=== PATIENT | female | born 1975 | race Caucasian/White ===

== ENCOUNTER 2018-06-17 08:06 | Emergency (ER) | payer BC ==
[~2018-06-17] VITALS: Ht 165.1 cm; Wt 67.9 kg
[2018-06-17 08:09] VITALS: Ht 165.1 cm; Wt 67.9 kg
[2018-06-17] MEDS ORDERED: SOD CHLORIDE 0.9% 1,000 ML IV STA (08:23)
[2018-06-17] MEDS ORDERED: KETOROLAC 30 MG INJ IV STA (08:23)
[2018-06-17] MEDS ORDERED: ONDANSETRON 4 MG INJ IV STA (08:23)
[2018-06-17] MEDS ORDERED: ACETAMINOPHEN 500 MG TAB ONE (09:11)
[2018-06-17] MEDS ORDERED: ACETAMINOPHEN 325 MG TAB PO ONE (09:30)
[2018-06-17] MEDS ORDERED: IBUP-1542 PO (10:34)
[2018-06-17] MEDS ORDERED: ONDA4TAB14 PO (10:34)
[2018-06-17 11:13] VITALS: BP 101/58; PULSE 92; RESP 17
--- NOTE | 2018-06-17 11:22 | ERD ---
ER Documentation Chief Complaint Chief Complaint abdominal pain, nausea and vomiting and dizziness this morning HPI Patient is a 43-year-old female with no medical problems who presents feeling "sick". She has dehydration and stomach pain. She has nausea and vomiting and generalized weakness. This started this morning while she was at work. She had subjective fever. She has had no treatment as of yet. She did not get a flu shot this year. Upon review of old medical records this is the patient's first visit to the emergency department. She does have a primary doctor Dr. Etienne. ROS All systems reviewed and are negative except as per history of present illness. Medications Home Meds Active Scripts Ondansetron (Ondansetron Odt) 4 Mg Tab.rapdis, 4 MG PO Q6H PRN for NAUSEA AND/OR VOMITING, #30 TAB Prov:DAVE ESCOBAR MD 06/17/18 Ibuprofen* (Motrin*) 600 Mg Tab, 600 MG PO Q6H PRN for PAIN AND OR ELEVATED TEMP, #30 TAB Prov:DAVE ESCOBAR MD 06/17/18 Allergies Allergies: Coded Allergies: cephalexin (Verified Allergy, Severe, RASH\\HIVES, 06/17/18) PER PT PMhx/Soc Medical and Surgical Hx: pt denies Medical Hx History of Surgery: Yes () Smoking Status: Never smoker FmHx Family History: diabetes Physical Exam Vitals Vital Signs Date Temp Pulse Resp B/P (MAP) Pulse Ox O2 O2 Flow FiO2 Time Delivery Rate 06/17/18 101.0 92 17 101/58 Room Air 11:13 (72) 06/17/18 102.1 09:13 06/17/18 102.1 100 17 107/61 100 Room Air 09:12 (76) 06/17/18 99.2 100 18 123/74 100 08:09 (90) Physical Exam Const: No acute distress Head: Atraumatic Eyes: Normal Conjunctiva ENT: Normal External Ears, Nose and Mouth. Neck: Full range of motion. No meningismus. Resp: Clear to auscultation bilaterally Cardio: Regular rate and rhythm, no murmurs Abd: Soft, non tender, non distended. Normal bowel sounds Skin: No petechiae or rashes Back: No midline or flank tenderness Ext: No cyanosis, or edema Neur: Awake and alert Psych: Normal Mood and Affect Result Diagram: 06/17/18 0837 06/17/18 0837 Results 24 hrs Laboratory Tests Test 06/17/18 08:37 White Blood Count 11.6 10^3/ul Red Blood Count 4.96 10^6/ul Hemoglobin 14.8 g/dl Hematocrit 44.1 % Mean Corpuscular Volume 88.9 fl Mean Corpuscular Hemoglobin 29.8 pg Mean Corpuscular Hemoglobin Concent 33.6 g/dl Red Cell Distribution Width 12.5 % Platelet Count 186 10^3/UL Mean Platelet Volume 10.5 fl Immature Granulocytes % 0.300 % Neutrophils % 89.3 % Lymphocytes % 4.2 % Monocytes % 5.5 % Eosinophils % 0.3 % Basophils % 0.4 % Nucleated Red Blood Cells % 0.0 /100WBC Immature Granulocytes # 0.030 10^3/ul Neutrophils # 10.4 10^3/ul Lymphocytes # 0.5 10^3/ul Monocytes # 0.6 10^3/ul Eosinophils # 0.0 10^3/ul Basophils # 0.1 10^3/ul Nucleated Red Blood Cells # 0.0 10^3/ul Urine Color YELLOW Urine Clarity CLEAR Urine pH 7.0 Urine Specific [place] 1.025 Urine Ketones TRACE mg/dL Urine Nitrite NEGATIVE mg/dL Urine Bilirubin NEGATIVE mg/dL Urine Urobilinogen NEGATIVE mg/dL Urine Leukocyte Esterase NEGATIVE [place] Urine Hemoglobin NEGATIVE mg/dL Urine Glucose NEGATIVE mg/dL Urine Total Protein NEGATIVE mg/dl Sodium Level 141 mmol/L Potassium Level 4.3 mmol/L Chloride Level 102 mmol/L Carbon Dioxide Level 29 mmol/L Anion Gap 10 Blood Urea Nitrogen 21 mg/dl Creatinine 0.77 mg/dl Est Glomerular Filtrat Rate mL/min > 60 mL/min Glucose Level 111 mg/dl Calcium Level 9.7 mg/dl Total Bilirubin 0.4 mg/dl Direct Bilirubin 0.00 mg/dl Indirect Bilirubin 0.4 mg/dl Aspartate Amino Transf (AST/SGOT) 21 IU/L Alanine Aminotransferase (ALT/SGPT) 20 IU/L Alkaline Phosphatase 39 IU/L Total Protein 8.1 g/dl Albumin 4.5 g/dl Globulin 3.60 g/dl Albumin/Globulin Ratio 1.25 Lipase 115 U/L Current Medications Medications Dose Sig/Kvng Start Time Status Last (Trade) Ordered Route PRN Stop Time Admin Dose Reason Admin Sodium 1,000 ml @ Q1H STAT 06/17/18 DC 06/17/18 Chloride 1,000 mls/hr IV 08:23 06/17/18 08:44 09:22 Ondansetron 4 mg ONCE STAT 06/17/18 DC 06/17/18 HCl (Zofran IV 08:23 06/17/18 08:44 Inj) 08:24 Ketorolac 30 mg ONCE STAT 06/17/18 DC 06/17/18 Tromethamine IV 08:23 06/17/18 09:22 (Toradol) 08:24 650 mg ONCE ONCE 06/17/18 DC 06/17/18 Acetaminophen PO 09:30 06/17/18 09:13 (Tylenol 09:31 Tab) 500 mg STK-MED 06/17/18 DC Acetaminophen ONCE .ROUTE 09:11 06/17/18 (Tylenol 09:12 Tab) Procedures/MDM CT abdomen pelvis read by radiology. Ultrasound of the gallbladder read by radiology. Patient is a 43-year-old female who presents with abdominal pain and vomiting. The patient has basically normal laboratory studies. CT scan and ultrasound showed no surgical process at this time. I doubt appendicitis, cholecystitis, pancreatitis, or bowel obstruction. The patient will be discharged. She feels better after fluids, Zofran, and Toradol. The patient will need to follow-up closely with her primary doctor within 24 hours. She can return for any worsening symptoms. Departure Diagnosis: Primary Impression: Vomiting Vomiting type: unspecified Vomiting Intractability: non-intractable Nausea presence: with nausea Qualified Codes: R11.2 - Nausea with vomiting, unspecified Additional Impression: Abdominal pain Abdominal location: generalized Qualified Codes: R10.84 - Generalized abdominal pain Condition: Fair Patient Instructions: Abdominal Pain, Vomiting (6Y-Adult) Referrals: Dr. Etienne Additional Instructions: Call your primary care doctor TOMORROW for an appointment during the next 1-2 days.See the doctor sooner or return here if your condition worsens before your appointment time. DAVE ESCOBAR MD Jun 17, 2018 11:22
== END 2018-06-17 11:15 | disposition home or self-care (01) ==
LOC: E/R 08:06
DX: R11.2 Nausea with vomiting, unspecified (principal); R10.84 Generalized abdominal pain
CPT/HCPCS: 36415; 74176; 76705; 80053; 81003; 83690; 85025; 87400; 93005; 96374; 96375; 99285; J1885; J2405; J7030